=== PATIENT | female | born 1980 | race American Indian/Alaskan Native ===

== ENCOUNTER 2016-10-14 10:04 | Day surgery (SDC) | payer BC ==
[~2016-10-14 10:04] MED LIST: DIPRIVAN 10 MG/ML IV ONE
--- NOTE | 2016-10-14 10:56 | Short Stay Summary ---
Short Stay Documentation Date of service: 10/14/16 Narrative H&P: 36 year old presents for EGD. Indication: diarrhea, iron deficiency anemia. - History Principal diagnosis: diarrhea, iron deficiency anemia Past Medical History: anemia Past Surgical History: hysterectomy, Other (tubal ligation) - Allergies and Medications Current Medications: Allergies latex Allergy (Verified 06/22/16 23:37) Hives parsley Allergy (Verified 06/22/16 23:37) Hives Home Medications Medication Instructions Recorded Confirmed Last Taken Type ALBUTEROL Inhaler [ProAir HFA 2 puff IH QID PRN 06/22/16 09/23/16 Unknown History Inhaler] Beclomethasone Dipropionate [Qvar] 80 mcg IH BID PRN 06/22/16 09/23/16 09/21/16 History Ferrous Sulfate [Feosol 325 MG tab] 325 mg PO QDAY 06/22/16 09/23/16 09/16/16 History Montelukast [Singulair] 10 mg PO QPM 06/22/16 09/23/16 09/16/16 History - Physical exam General appearance: no acute distress, well-nourished HEENT: PERRLA, EOMI Lungs: Clear to auscultation Heart: Regular rate, Normal S1, Normal S2 Gastrointestinal: normal Neurological: Normal speech - Hospital course Hospital course: Uneventful EGD. - Disposition Condition at discharge: Good Disposition: DISCHARGED TO HOME OR SELFCARE - Discharge Diagnoses (1) Diarrhea Status: Acute (2) Iron deficiency anemia Status: Acute Short Stay Discharge Plan Activity: other (no driving today) Diet: other (may resume usual diet) Additional Instructions: Patient to call for biospy results.
[2016-10-14] MEDS ORDERED: NACL 0.9% 1000 ML 1,000 ML IV SCH (12:00)
--- NOTE | 2016-10-14 12:26 | Anesthesia Consultation ---
Anesthesia Consult and Med Hx Date of service: 10/14/16 - Airway Anesthetic Teeth Evaluation: Good (some missing teeth) ROM Head & Neck: Adequate Mental/Hyoid Distance: Adequate Mallampati Class: Class II Intubation Access Assessment: Probably Good - Pre-Operative Health Status ASA Pre-Surgery Classification: ASA2 Proposed Anesthetic Plan: MAC - Pulmonary Hx Smoking: No Hx Asthma: Yes (on 2 inhalers) COPD: No Hx Sleep Apnea: No - Cardiovascular System Hx Hypertension: No Hx Heart Attack/AMI: No Hx Pacemaker: No Hx Internal Defibrillator: No - Central Nervous System Hx Seizures: No CVA: No - Gastrointestinal Hx Ulcer: (abdominal pain) Hx Gastroesophageal Reflux Disease: No - Endocrine Hx Renal Disease: No Hx Liver Disease: No Hx Non-Insulin Dependent Diabetes: No - Hematic Hx Anemia: Yes Hx Sickle Cell Disease: No - Other Systems Hx Obesity: Yes (BMI 36.0)
--- NOTE | 2016-10-14 12:26 | Anesthesia Day of Surgery ---
Anesthesia Day of Surgery - Day of Surgery Patient Examined: Yes Patient H&P Reviewed: Yes Patient is NPO: Yes
--- NOTE | 2016-10-14 12:50 | Operative Report ---
Operative Report Operative Report: Date of procedure: 10/14/2016 Preprocedure diagnosis: Unexplained diarrhea, unexplained iron deficiency anemia Post procedure diagnosis: Essentially normal upper endoscopy Procedure name(s): Esophagogastroduodenoscopy and biopsy Surgeon: Pablito Mohamud MD Anesthesia: Monitored anesthesia care EBL: None Procedure: The indications, techniques, potential complications and alternatives , had been discussed in full detail prior to the date of the exam, and once again on the day of the exam. Questions were encouraged and answered, and consent was thereby obtained. The patient was placed in the left lateral decubitus position, and was medicated by anesthesia services. See the anesthesia records for details. The tip of a [employer] video panendoscope was passed easily through the pharynx and into the esophagus which appeared normal throughout its entire length. The instrument was advanced into the stomach and air was insufflated. The gastric mucosa appeared intact throughout. There was no ulceration, erosion or other gross inflammatory change. The pylorus was patent and there was no retained content. Gastric folds were normal in thickness. No pathology was seen in the duodenal bulb or the post bulbar duodenum to below the level of the ampulla. Retroflexion in the stomach disclosed no pathology involving lesser curvature, fundus or cardia. Random post bulbar duodenal mucosal biopsies were obtained to assess villous architecture. Antral biopsies were obtained for rapid Helicobacter pylori testing. There was no significant bleeding from any biopsy site. The instrument was then withdrawn, with repeat examination of the stomach , esophagogastric junction and esophagus. There were no additional findings. The procedure was very well tolerated. Post instrument withdrawal, she briefly desaturated but responded well to chin lift. She was then transferred to recovery for further monitoring and to ensure stability prior to her release. See the outpatient record for details regarding instructions to patient, medications and plans for follow-up. Final diagnosis: Essentially normal upper endoscopy. Biopsies obtained to assess duodenal villous architecture and to rule out Helicobacter pylori. Pablito Mohamud M.D. Dictated 10/14/2016 at 12:45 PM
[2016-10-14 13:12] VITALS: BP 117/73
--- NOTE | 2016-10-14 13:32 | Post Anesthesia Evaluation ---
- Post Anesthesia Evaluation Patient Participated: Yes Airway Patent: Yes Stable Respiratory Function: Yes Nausea/Vomiting: No Temp > 96.8F: Yes Pain Manageable: Yes Adequeate Hydration: Yes Anesthesia Complications: No Block Receding Appropriately: Not Applicable Patient on Ventilator: No
== END 2016-10-14 10:05 | disposition home or self-care (01) ==
LOC: GIO 10:04
PROVIDERS: ATTEND Internal Medicine Gastroenterology
DX: D50.9 Iron deficiency anemia, unspecified (principal); R19.7 Diarrhea, unspecified; J45.909 Unspecified asthma, uncomplicated
CPT/HCPCS: 43239; 86677; 88305; J2704; J7030

== ENCOUNTER 2017-04-10 09:25 | Outpatient (CLI) | payer BC ==
--- NOTE | 2017-04-10 09:48 | XRay Report ---
ROUTINE CHEST, TWO VIEWS: History: Shortness of breath. PA and lateral views demonstrate the heart and mediastinal contour to be of normal size and shape. The lungs are clear and fully expanded and the soft tissues and bony structures are normal. IMPRESSION: Normal study.
== END 2017-04-10 09:26 | disposition home or self-care (01) ==
LOC: XRAY 09:25
PROVIDERS: ATTEND Nurse Practitioner Family
DX: J45.909 Unspecified asthma, uncomplicated (principal)
CPT/HCPCS: 71020

== ENCOUNTER 2017-05-29 18:04 | Outpatient (CLI) | payer BC ==
[2017-05-29 18:42] LABS: Reticulocyte % 1.84 % (0.78-2.58)
[2017-05-29 19:05] LABS: Iron 55 ug/dL (37-170); Lactate Dehydrogenase 168 units/L (91-180); Total Iron Binding Capacity 267 mcg/dL (250-450)
[2017-05-29 19:23] LABS: Bilirubin,Direct < 0.2 mg/dL (0-0.2)
[2017-06-02 21:33] LABS: Albumin 3.9 g/dL (3.8-4.8); Gamma Globulin 1.1 g/dL (0.8-1.7)
== END 2017-05-29 18:05 | disposition home or self-care (01) ==
LOC: LAB 18:04
PROVIDERS: ATTEND Internal Medicine Hematology & Oncology
DX: D50.9 Iron deficiency anemia, unspecified (principal); E66.9 Obesity, unspecified
CPT/HCPCS: 36415; 82248; 82607; 82668; 82728; 82747; 83010; 83550; 83615; 83921; 84165; 85045; 86880

== ENCOUNTER 2017-08-18 08:41 | Outpatient (CLI) | payer BC ==
--- NOTE | 2017-08-18 09:59 | Mammography Report ---
BILATERAL MAMMOGRAM: FINDINGS: The breasts are almost entirely fat (<25% glandular). No mass, distortion, suspicious calcification, or skin change is seen. CAD was utilized. IMPRESSION: Negative mammogram. There is no mammographic evidence of malignancy. RECOMMENDATION: Follow-up per ACS guidelines. BI-RADS CATEGORY: 1 = Negative ACR BI-RADS MAMMOGRAPHIC CODES: 0 = Needs additional imaging evaluation; 1 = Negative; 2 = Benign; 3 = Probably benign; 4 = Suspicious; 5 = Malignant; 6 = Known biopsy-proven malignancy COMMENT: 1. Dense breast tissue, i.e., adenosis, fibrocystic changes, etc., may obscure an underlying neoplasm. 2. Approximately 10% of cancers are not detected with mammography. 3. A negative mammography report should not delay biopsy if a clinically suspicious mass is present. COMMENT: Patient follow-up letters are generated in [employer].
== END 2017-08-18 08:42 | disposition home or self-care (01) ==
LOC: SPVWC 08:41
PROVIDERS: ATTEND Internal Medicine Hematology & Oncology
DX: Z12.31 Encounter for screening mammogram for malignant neoplasm of breast (principal)
CPT/HCPCS: 77067; G0202

== ENCOUNTER 2019-04-27 09:34 | Emergency (ER) | payer BC, OTHER ==
[2019-04-27] MEDS ORDERED: MAGNESIUM SULFATE 2GM/50ML 2 GM/50 ML BAG IV ONE (10:08)
[2019-04-27] MEDS ORDERED: DUONEB *Not for PRN Use IH ONE (10:25)
--- NOTE | 2019-04-27 11:28 | Emergency Department Report ---
ED Shortness of Breath HPI - General Chief Complaint: Adult Asthma Stated Complaint: ASTHMA/REFRRED BY DOCTOR Time Seen by Provider: 04/27/19 10:08 Source: patient Mode of arrival: Ambulatory Limitations: No Limitations - History of Present Illness Initial Comments: 39 year old female with a past medical history of asthma and anemia presents to the hospital complaints of shortness of breath 2 days. Patient having intermittent wheezing and experiencing chest tightness with exertion. She denies cough, fever, leg edema, calf tenderness, recent travel, history of PE/DVT. Patient states that symptoms worsened and became more persistent this a.m. she went to [facility] around 3 AM. She was treated with nebulized breathing treatments and Decadron and states she was not feeling any better and felt that she needed IV magnesium since it has helped in the past. She then followed up with her internal security manager Dr. Peguero this morning. He advised her to come to the hospital to receive IV magnesium to help further improve her symptoms. Patient denies hypertension, diabetes, high cholesterol, smoking, or previous cardiac history. - Related Data Home Medications Medication Instructions Recorded Confirmed Last Taken Montelukast [Singulair] 10 mg PO QPM 06/22/16 04/27/19 09/07/18 Biotin 10,000 mg PO DAILY 09/08/18 04/27/19 09/07/18 Symbicort 160-4.5 Mcg Inhaler 2 puff INHALATION BID 09/08/18 04/27/19 09/08/18 ALBUTEROL Inhaler (OR & NICU) 2 puff IH QID PRN 04/27/19 04/27/19 Unknown [Proair] Omeprazole Magnesium [PriLOSEC Otc] 20 mg PO QDAY 04/27/19 04/27/19 Unknown Allergies Allergy/AdvReac Type Severity Reaction Status Date / Time latex Allergy Hives Verified 04/27/19 11:30 ondansetron [From Zofran] Allergy Dizziness Verified 04/27/19 11:30 parsley Allergy Hives Verified 04/27/19 11:30 ED Review of Systems ROS: Stated complaint: ASTHMA/REFRRED BY DOCTOR Other details as noted in HPI Comment: All other systems reviewed and negative ED Past Medical Hx - Past Medical History Previous Medical History?: Yes Hx Hypertension: No Hx CVA: No Hx Heart Attack/AMI: No Hx Congestive Heart Failure: No Hx Diabetes: No Hx Deep Vein Thrombosis: No Hx Pulmonary Embolism: No Hx GERD: No Hx Liver Disease: No Hx Renal Disease: No Hx Sickle Cell Disease: No Hx Arthritis: No Hx Headaches / Migraines: No Hx Seizures: No Hx Kidney Stones: No Hx Psychiatric Treatment: No Hx Asthma: Yes Hx COPD: No Hx Tuberculosis: No Hx Dementia: No Hx HIV: No Additional medical history: anemia - Surgical History Past Surgical History?: Yes Hx Coronary Stent: No Hx Open Heart Surgery: No Hx Pacemaker: No Hx Internal Defibrillator: No Hx Cholecystectomy: No Hx Appendectomy: No Hx Breast Surgery: No Additional Surgical History: parital hysterectomy - Social History Smoking Status: Never Smoker Substance Use Type: None - Medications Home Medications: Home Medications Medication Instructions Recorded Confirmed Last Taken Type Montelukast [Singulair] 10 mg PO QPM 06/22/16 04/27/19 09/07/18 History Biotin 10,000 mg PO DAILY 09/08/18 04/27/19 09/07/18 History Symbicort 160-4.5 Mcg Inhaler 2 puff INHALATION BID 09/08/18 04/27/19 09/08/18 History ALBUTEROL Inhaler (OR & NICU) 2 puff IH QID PRN 04/27/19 04/27/19 Unknown Hi story [Proair] Omeprazole Magnesium [PriLOSEC Otc] 20 mg PO QDAY 04/27/19 04/27/19 Unknown History ED Physical Exam - General Limitations: No Limitations - Other Other exam information: General: No limitations, patient is alert in no acute distress Head exam: Atraumatic, normocephalic Eyes exam: Normal appearance ENT: Moist mucous membrane, normal oropharynx Neck exam: Normal inspection, full range of motion, no meningismus nontender Respiratory exam: No wheezing, rales, or crackles, slightly diminished breath sounds. No tachypnea Cardiovascular: Normal rate and rhythm, normal heart sounds Abdomen: Soft, nondistended, and nontender, with normal bowel sounds, no rebound, or guarding Extremity: Full range of motion normal inspection no deformity, no calf tenderness or edema Back: Normal Inspection, full range of motion, no tenderness Neurologic: Alert, oriented x3, cranial nerves intact, no motor or sensory deficit Psychiatric: normal affect, normal mood Skin: Warm, dry, intact ED Course Vital Signs 04/27/19 04/27/19 04/27/19 09:41 10:26 10:30 Temperature 97.5 F L Pulse Rate 100 H 89 Pulse Rate [ Posterior Bilateral Throughout] Respiratory 19 12 Rate Respiratory Rate [Posterior Bilateral Throughout] Blood Pressure 129/56 Blood Pressure 158/71 [Right] O2 Sat by Pulse 98 97 99 Oximetry 04/27/19 04/27/19 04/27/19 10:45 11:00 11:15 Temperature Pulse Rate 79 90 91 H Pulse Rate [ Posterior Bilateral Throughout] Respiratory 11 L 13 13 Rate Respiratory Rate [Posterior Bilateral Throughout] Blood Pressure 118/61 122/48 113/66 Blood Pressure [Right] O2 Sat by Pulse 100 99 97 Oximetry 04/27/19 04/27/19 04/27/19 11:30 11:31 11:45 Temperature Pulse Rate 79 77 Pulse Rate [ Posterior Bilateral Throughout] Respiratory 18 18 16 Rate Respiratory Rate [Posterior Bilateral Throughout] Blood Pressure 115/57 112/60 Blood Pressure [Right] O2 Sat by Pulse 97 97 Oximetry 04/27/19 04/27/19 04/27/19 12:00 12:30 12:45 Temperature Pulse Rate 81 88 69 Pulse Rate [ Posterior Bilateral Throughout] Respiratory 16 19 15 Rate Respiratory Rate [Posterior Bilateral Throughout] Blood Pressure 109/66 116/70 101/62 Blood Pressure [Right] O2 Sat by Pulse 98 98 98 Oximetry 04/27/19 04/27/19 04/27/19 13:15 13:49 14:31 Temperature Pulse Rate 72 103 H Pulse Rate [ 74 Posterior Bilateral Throughout] Respiratory 17 15 Rate Respiratory 18 Rate [Posterior Bilateral Throughout] Blood Pressure 120/45 103/68 Blood Pressure [Right] O2 Sat by Pulse 99 99 Oximetry ED Medical Decision Making - EKG Data -: EKG Interpreted by [facility] EKG shows normal: sinus rhythm, axis (qrs 89), QRS complexes (qrsd 105), ST-T waves (no stemi/t inv) Rate: normal - Radiology Data Radiology results: report reviewed CHEST 2 VIEWS INDICATION / CLINICAL INFORMATION: Shortness of breath/asthma for 2 days. COMPARISON: None available. FINDINGS: SUPPORT DEVICES: None. HEART / MEDIASTINUM: The heart size and pulmonary vasculature are normal. LUNGS / PLEURA: No significant pulmonary or pleural abnormality. No pneumothorax. ADDITIONAL FINDINGS: No significant additional findings. IMPRESSION: No acute findings. - Medical Decision Making Patient reports feeling better after each treatment INCLUDING magnesium IV and several DuoNebs. She currently has a prescription for Medrol Dosepak and Duonebs for home. Pt will be d/guillermo to f/u with Dr Peguero - Differential Diagnosis asthma, bronchitis, pneumonia, pneumothorax Critical Care Time: No Critical care attestation.: If time is entered above; I have spent that time in minutes in the direct care of this critically ill patient, excluding procedure time. ED Disposition Clinical Impression: Asthma exacerbation Disposition: DC- TO HOME OR SELFCARE Is pt being admited?: No Does the pt Need Aspirin: No Condition: Stable Instructions: Asthma (ED) Additional Instructions: Take the medication as prescribed. Follow up with your doctor or the clinic/doctor provided. Return if symptoms worsen as indicated by your discharge instructions Referrals: IVETH PEGUERO MD [Staff Physician] - 3-5 Days Time of Disposition: 15:12
[2019-04-27] MEDS ORDERED: PROVENTIL IH ONE (12:46)
--- NOTE | 2019-04-27 13:32 | XRay Report ---
CHEST 2 VIEWS INDICATION / CLINICAL INFORMATION: Shortness of breath/asthma for 2 days. COMPARISON: None available. FINDINGS: SUPPORT DEVICES: None. HEART / MEDIASTINUM: The heart size and pulmonary vasculature are normal. LUNGS / PLEURA: No significant pulmonary or pleural abnormality. No pneumothorax. ADDITIONAL FINDINGS: No significant additional findings. IMPRESSION: No acute findings. Signer Name: David Saucedo MD Signed: 04/27/2019 1:28 PM Workstation Name: [id number]
[2019-04-27 16:24] VITALS: BP 112/60
== END 2019-04-27 16:15 | disposition home or self-care (01) ==
LOC: ED 09:34
DX: J45.901 Unspecified asthma with (acute) exacerbation (principal); D64.9 Anemia, unspecified; Z90.710 Acquired absence of both cervix and uterus; Z79.899 Other long term (current) drug therapy; Z91.040 Latex allergy status; Z88.8 Allergy status to other drugs, medicaments and biological substances
CPT/HCPCS: 71046; 93005; 93010; 94640; 96365; 99284; J3475; 94644

== ENCOUNTER 2021-04-08 10:27 | Emergency (ER) | payer BC, OTHER ==
[2021-04-08 10:40] VITALS: BP 132/71
--- NOTE | 2021-04-08 11:19 | Emergency Department Report ---
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 She states that she was removing a pair of clean gloves from an isolation cart when she accidentally cut her left index finger on plastic sharp edge on the cart. She states that this occurred just prior to arrival. Patient states that the wound was bleeding severely and could not get under control but she states that it has slowed down since pressure dressing was applied and since she arrived to the ER. Patient reports pain mainly around the wound but no other symptoms. She states she is right-hand dominant. She is up-to-date on her immunizations. ED Review of Systems ROS: Stated complaint: CUT ON FINGER Other details as noted in HPI Comment: All other systems reviewed and negative Constitutional: denies: chills, fever Eyes: denies: eye pain, eye discharge, vision change ENT: denies: ear pain, throat pain, dental pain, hearing loss, congestion Respiratory: denies: cough, shortness of breath, SOB with exertion, SOB at rest, wheezing Cardiovascular: denies: chest pain, palpitations Gastrointestinal: denies: abdominal pain, nausea, diarrhea, constipation, hematemesis, melena, hematochezia Genitourinary: denies: urgency, dysuria, frequency, hematuria, discharge, abnormal menses, dyspareunia Musculoskeletal: denies: back pain, joint swelling, arthralgia Skin: other (Laceration left index finger) Neurological: denies: headache, weakness, numbness, paresthesias, confusion, abnormal gait, vertigo Psychiatric: denies: anxiety, depression Hematological/Lymphatic: denies: easy bleeding, easy bruising ED Past Medical Hx - Past Medical History Previous Medical History?: Yes Hx Hypertension: No Hx CVA: No Hx Heart Attack/AMI: No Hx Congestive Heart Failure: No Hx Diabetes: No Hx Deep Vein Thrombosis: No Hx Pulmonary Embolism: No Hx GERD: No Hx Liver Disease: No Hx Renal Disease: No Hx Sickle Cell Disease: No Hx Arthritis: No Hx Headaches / Migraines: No Hx Seizures: No Hx Kidney Stones: No Hx Psychiatric Treatment: No Hx Asthma: Yes Hx COPD: No Hx Tuberculosis: No Hx Dementia: No Hx HIV: No Additional medical history: anemia - Surgical History Past Surgical History?: Yes Hx Coronary Stent: No Hx Open Heart Surgery: No Hx Pacemaker: No Hx Internal Defibrillator: No Hx Cholecystectomy: No Hx Appendectomy: No Hx Breast Surgery: No Additional Surgical History: parital hysterectomy - Social History Smoking Status: Never Smoker Substance Use Type: Alcohol - Medications Home Medications: Home Medications Medication Instructions Recorded Confirmed Last Taken Type Montelukast [Singulair] 10 mg PO QPM 06/22/16 04/27/19 09/07/18 History Biotin 10,000 mg PO DAILY 09/08/18 04/27/19 09/07/18 History Symbicort 160-4.5 Mcg Inhaler 2 puff INHALATION BID 09/08/18 04/27/19 09/08/18 History Albuterol Mdi (or & Nicu Only) 2 puff IH QID PRN 04/27/19 04/27/19 Unknown History [Proair] Omeprazole Magnesium [PriLOSEC Otc] 20 mg PO QDAY 04/27/19 04/27/19 Unknown History Laceration Physical Exam - Exam General: Vital signs noted. No distress. Alert and acting appropriately. Left index finger examination: Patient has an approximately 0.4 cm very superficial skin avulsion noted to the left index finger at the level of the middle phalanx on the radial aspect of the finger. No active bleeding at this time. She has some mild tenderness mainly around the wound but there is no swelling, bruising, or erythema. She has full range of motion of the joints of the finger. Sensation about the finger intact. Cap refills normal. Laceration Location: Upper Extremity (left index finer) Laceration Exam: Yes Foreign Body, Yes Normal Distal CMS, No Exposed Tendon, Vessel, or Nerve, No Tendon Injury ED Course Vital Signs 04/08/21 10:37 Temperature 98.5 F Pulse Rate 81 Respiratory 20 Rate Blood Pressure 132/71 O2 Sat by Pulse 96 Oximetry ED Medical Decision Making - Medical Decision Making Patient with a very superficial skin avulsion measuring about 0.4 cm noted to the left index finger. No active bleeding at time of exam. No indication for repair at this time. There is no neurovascular compromise on exam to the left index finger. Patient is up-to-date on her tetanus. Discussed diagnosis and treatment plan with patient. Discussed wound care. Patient expressed understanding of instructions and agree with plan. Patient was stable at time of discharge. Critical care attestation.: If time is entered above; I have spent that time in minutes in the direct care of this critically ill patient, excluding procedure time. ED Disposition Clinical Impression: Avulsion of skin of finger Disposition: DC-01 TO HOME OR SELFCARE Is pt being admited?: No Does the pt Need Aspirin: No Condition: Stable Instructions: Skin Tear, [id number], Wound Care, Adult Additional Instructions: I recommend that you keep the wound clean with soap and water. Do not use peroxide or alcohol. Dry well after each cleaning and you can apply a thin layer of Neosporin after each cleaning. Do this daily until it heals. Recommend taking Tylenol and/or ibuprofen from [id number] to help with any pain. Follow-up with your primary care doctor as needed. Return to the ER if there is any signs and symptoms of infection to the wound such as pus drainage, increasing pain or swelling. Referrals: PRIMARY CARE [Primary Care Provider] - 3-5 Days Time of Disposition: 11:23
[2021-04-08] MEDS ORDERED: NEOMY 3.5 MG/BACIT 400 UNITS/POLY B 5000 UNITS/GM OINT PACKET TP ONE (11:24)
== END 2021-04-08 11:44 | disposition home or self-care (01) ==
LOC: ED 10:27
DX: S61.200A Unspecified open wound of right index finger without damage to nail, initial encounter (principal); D64.9 Anemia, unspecified; J45.909 Unspecified asthma, uncomplicated; Z91.040 Latex allergy status; Z88.8 Allergy status to other drugs, medicaments and biological substances; Z90.710 Acquired absence of both cervix and uterus; X58.XXXA Exposure to other specified factors, initial encounter; Y93.89 Activity, other specified; Y92.89 Other specified places as the place of occurrence of the external cause; Y99.8 Other external cause status
CPT/HCPCS: 99282; A6250

== ENCOUNTER 2022-01-18 14:40 | Emergency (ER) | payer SELFPAY ==
[2022-01-18 15:01] VITALS: BP 156/87
--- NOTE | 2022-01-18 15:49 | Emergency Department Report ---
<LINDA SON L - Last Filed: 01/18/22 15:42> ED Shortness of Breath HPI - General Chief Complaint: Dyspnea/Respdistress Stated Complaint: ASTHMA Source: patient Mode of arrival: Ambulatory Limitations: No Limitations - History of Present Illness Initial Comments: 41 female present to Ed complain of shortness of breath .Patient state history of Asthma .Patient she as respiratory therapist .Patient state that she her vital are normal stable and she normal has no wheezes.Patient state she normal require in magnesium iv, steroids and albuterol with out atrovent for relief .Patient state chest tightness but no pain.Prior treatment with albuterol inhaler no relief .She is alert and oriented x 3 .No acute distress noted .No ill apperance noted. MD Complaint: shortness of breath -: This morning Improves With: nothing, rest Known History Of: asthma Associated Symptoms: denies other symptoms Treatments Prior to Arrival: none - Related Data Home Oxygen Therapy: No Home Medications Medication Instructions Recorded Confirmed Last Taken Montelukast [Singulair] 10 mg PO QPM 06/22/16 04/27/19 09/07/18 Biotin 10,000 mg PO DAILY 09/08/18 04/27/19 09/07/18 Symbicort 160-4.5 Mcg Inhaler 2 puff INHALATION BID 09/08/18 04/27/19 09/08/18 Albuterol Mdi (or & Nicu Only) 2 puff IH QID PRN 04/27/19 04/27/19 Unknown [Proair] Omeprazole Magnesium [PriLOSEC Otc] 20 mg PO QDAY 04/27/19 04/27/19 Unknown Previous Rx's Medication Instructions Recorded Last Taken Type predniSONE [Deltasone] 40 mg PO QDAY 5 Days #10 tab NS 01/18/22 Unknown Rx Allergies Allergy/AdvReac Type Severity Reaction Status Date / Time latex Allergy Hives Verified 04/27/19 11:30 ondansetron [From Zofran] Allergy Dizziness Verified 04/27/19 11:30 parsley Allergy Hives Verified 04/27/19 11:30 ED Review of Systems Constitutional: denies: chills, fever Eyes: denies: eye pain, eye discharge, vision change ENT: denies: ear pain, throat pain Respiratory: shortness of breath. denies: cough, wheezing Cardiovascular: denies: chest pain, palpitations Endocrine: no symptoms reported Gastrointestinal: denies: abdominal pain, nausea, diarrhea Genitourinary: denies: urgency, dysuria, discharge Musculoskeletal: denies: back pain, joint swelling, arthralgia Skin: denies: rash, lesions Neurological: denies: headache, weakness, paresthesias Psychiatric: denies: anxiety, depression Hematological/Lymphatic: denies: easy bleeding, easy bruising ED Past Medical Hx - Past Medical History Hx Hypertension: No Hx CVA: No Hx Heart Attack/AMI: No Hx Congestive Heart Failure: No Hx Diabetes: No Hx Deep Vein Thrombosis: No Hx Pulmonary Embolism: No Hx GERD: No Hx Liver Disease: No Hx Renal Disease: No Hx Sickle Cell Disease: No Hx Arthritis: No Hx Headaches / Migraines: No Hx Seizures: No Hx Kidney Stones: No Hx Psychiatric Treatment: No Hx Asthma: Yes Hx COPD: No Hx Tuberculosis: No Hx Dementia: No Hx HIV: No Additional medical history: anemia - Surgical History Hx Coronary Stent: No Hx Open Heart Surgery: No Hx Pacemaker: No Hx Internal Defibrillator: No Hx Cholecystectomy: No Hx Appendectomy: No Hx Breast Surgery: No Additional Surgical History: parital hysterectomy - Social History Smoking Status: Never Smoker Substance Use Type: Alcohol - Medications Home Medications: Home Medications Medication Instructions Recorded Confirmed Last Taken Type Montelukast [Singulair] 10 mg PO QPM 06/22/16 04/27/19 09/07/18 History Biotin 10,000 mg PO DAILY 09/08/18 04/27/19 09/07/18 History Symbicort 160-4.5 Mcg Inhaler 2 puff INHALATION BID 09/08/18 04/27/19 09/08/18 History Albuterol Mdi (or & Nicu Only) 2 puff IH QID PRN 04/27/19 04/27/19 Unknown History [Proair] Omeprazole Magnesium [PriLOSEC Otc] 20 mg PO QDAY 04/27/19 04/27/19 Unknown History predniSONE [Deltasone] 40 mg PO QDAY 5 Days #10 tab NS 01/18/22 Unknown Rx ED Physical Exam - General Limitations: No Limitations General appearance: alert, in no apparent distress - Head Head exam: Present: atraumatic, normocephalic - Eye Eye exam: Present: normal appearance - ENT ENT exam: Present: mucous membranes moist - Neck Neck exam: Present: normal inspection - Respiratory Respiratory exam: Present: normal lung sounds bilaterally. Absent: respiratory distress - Cardiovascular Cardiovascular Exam: Present: regular rate, normal rhythm. Absent: systolic murmur, diastolic murmur, rubs, gallop - GI/Abdominal GI/Abdominal exam: Present: soft, normal bowel sounds - Extremities Exam Extremities exam: Present: normal inspection - Back Exam Back exam: Present: normal inspection - Neurological Exam Neurological exam: Present: alert, oriented X3 - Psychiatric Psychiatric exam: Present: normal affect, normal mood - Skin Skin exam: Present: warm, dry, intact, normal color. Absent: rash ED Disposition Clinical Impression: Asthma attack Qualifiers: Asthma severity: unspecified severity Asthma persistence: unspecified Qualified Code(s): J45.901 - Unspecified asthma with (acute) exacerbation Asthma exacerbation attacks Qualifiers: Asthma severity: unspecified severity Asthma persistence: unspecified Qualified Code(s): J45.901 - Unspecified asthma with (acute) exacerbation Disposition: 01 HOME / SELF CARE / HOMELESS Condition: Stable Instructions: Asthma Attack Prevention, Adult, Asthma and Physical Activity Additional Instructions: Please take and complete your prednisone for 5 days as prescribed Call and schedule follow-up with your wildlife control operator/primary doctor in the next 3 to 5 days for progress Please do not hesitate to call or return to emergency room if your symptoms worsen Prescriptions: predniSONE [Deltasone] 40 mg PO QDAY 5 Days #10 tab NS <FILIBERTO COON - Last Filed: 01/18/22 22:33> ED Review of Systems ROS: Stated complaint: ASTHMA Other details as noted in HPI ED Course Vital Signs 01/18/22 01/18/22 14:58 20:17 Temperature 98.4 F Pulse Rate 83 Pulse Rate [ 80 Bilateral Throughout] Respiratory 20 Rate Respiratory 15 Rate [Bilateral Throughout] Blood Pressure 156/87 [Right] O2 Sat by Pulse 98 Oximetry - Reevaluation(s) Reevaluation #1: 01/18/22 18:18 I went and evaluate this patient who was been seen by the [facility]. Noted to be in no respiratory distress or wheezing however patient reports that she can quickly deteriorate into full blown asthma and sometime may need to be admitted. Pt reports that she has a regimen from her Pulmonogist Dr Jang or Dr. Peguero so i called [phone] and was able to connect with Dr Jang who confirmed this patient immediate need and treatment. When this happened she usually takes 2 g of magnesium, 125 mg of Solu-Medrol and albuterol treatment. 01/18/22 22:21 Patient report feeling much better after getting the above treatment--she says she is ready to go home on 1 daily prednisone. We will discharge patient home on steroid for 5 days with close follow-up with wildlife control operator. Patient voiced understanding and agreement with this plan. Critical care attestation.: If time is entered above; I have spent that time in minutes in the direct care of this critically ill patient, excluding procedure time. ED Disposition Is pt being admited?: No Does the pt Need Aspirin: No
[2022-01-18] MEDS ORDERED: ALBUTEROL 2.5 MG/3 ML NEBU IH ONE ×2 (15:50→20:09)
--- NOTE | 2022-01-18 16:26 | XRay Report ---
XR chest routine 2V INDICATION / CLINICAL INFORMATION: Dyspnea. COMPARISON: 04/27/2019 FINDINGS: SUPPORT DEVICES: None. HEART /PULMONARY VASCULATURE: No significant abnormality. LUNGS / PLEURA: No significant pulmonary or pleural abnormality. No pneumothorax. ADDITIONAL FINDINGS: No significant additional findings. IMPRESSION: 1. No acute findings. Signer Name: Mauricio Elias MD Signed: 01/18/2022 4:22 PM Workstation Name: [id number]
[2022-01-18] MEDS ORDERED: MAGNESIUM SULFATE 2 GM/50 ML BAG IV ONE (18:35)
[2022-01-18] MEDS ORDERED: methylPREDNISolone Sod Succinate 125 MG/2 ML INJ IV ONE (18:36)
== END 2022-01-18 23:31 | disposition home or self-care (01) ==
LOC: ED 14:40
DX: J45.901 Unspecified asthma with (acute) exacerbation (principal); Z88.5 Allergy status to narcotic agent; Z88.8 Allergy status to other drugs, medicaments and biological substances; Z91.040 Latex allergy status; Z79.899 Other long term (current) drug therapy
CPT/HCPCS: 71046; 94640; 96365; 96375; 99283; J2930; J3475; 94644